=== PATIENT | male | born 1965 | race Caucasian/White ===

== ENCOUNTER 2023-06-23 08:33 | Emergency (ER) | payer SELFPAY ==
[~2023-06-23] VITALS: Ht 165.1 cm; Wt 50.0 kg
[2023-06-23 09:40] VITALS: BP 118/76; PULSE 87; RESP 18; O2SAT 98
[2023-06-23] MEDS ORDERED: HYDROcodone-ACET 5/325MG TAB PO ONE (09:45)
[2023-06-23] MEDS ORDERED: PRED20TA2 PO (10:19)
[2023-06-23] MEDS ORDERED: ACET-1080 PO (10:19)
== END 2023-06-23 10:19 | disposition home or self-care (01) ==
LOC: ER 08:33
DX: M54.16 Radiculopathy, lumbar region (principal); M79.651 Pain in right thigh; Z59.00 Homelessness unspecified
CPT/HCPCS: 93971

== ENCOUNTER 2025-09-04 09:19 | Inpatient (IN) | payer SELFPAY ==
[~2025-09-04] VITALS: Ht 165.1 cm; Wt 132.0 kg
[~2025-09-04 09:19] MED LIST: ACET-1080 PO; PRED20TA2 PO
--- NOTE | 2025-09-04 09:34 | ED.PDOC ---
Psychiatric HPI Comments 60 yo male presents to the ED via EMS for an evaluation of mental health. EMS reports patient is homeless, reported that he was called in has been in the brain in the past couple of days. Upon ED arrival patient's temperature presents at 95 F via temporal site. Patient is not cooperative, is not answering any other questions and his covered up with a\ blanket stating that he is cold. Unable to provide any background history or any on known medication and take. Chief Complaint: Mental Health Time Seen by MD: 09:18 Primary Care Provider: SAIMA Reviewed Notes: Nurses Notes, Toll Ticket Clerk Notes, Medications, Allergies Information Source: Patient, Emergency Med Personnel Severity: Able to Care for Self Timing: Days Duration: Since onset Presents with: Other Circumstance: Other History of: Other Past Medical History PAST MEDICAL HISTORY: Unknown, Unobtainable Surgical History: Unknown, Unobtainable Family History Family History: Unknown, Unobtainable Social History Smoker: Unknown, Unobtainable Alcohol: Unknown, Unobtainable Drugs: Unknown, Unobtainable Lives In: Homeless Constitutional: denies: chills, diaphoresis, fatigue, fever, malaise, sweats, weakness, others EENTM: denies: blurred vision, double vision, ear bleeding, ear discharge, ear drainage, ear pain, ear ringing, eye pain, eye redness, hearing loss, mouth pain, mouth swelling, nasal discharge, nose bleeding, nose congestion, nose pain, photophobia, tearing, throat pain, throat swelling, voice changes, others Respiratory: denies: cough, hemoptysis, orthopnea, SOB at rest, shortness of breath, SOB with excertion, stridor, wheezing, others Cardiovascular: denies: chest pain, dizzy spells, diaphoresis, Dyspnea on exertion, edema, irregular heart beat, left arm pain, lightheadedness, palpitations, PND, syncope, others Gastrointestinal: denies: abdomen distended, abdominal pain, blood streaked bowels, constipated, diarrhea, dysphagia, difficulty swallowing, hematemesis, melena, nausea, poor appetite, poor fluid intake, rectal bleeding, rectal pain, vomiting, others Genitourinary: denies: burning, dysuria, flank pain, frequency, hematuria, incontinence, penile discharge, penile sore, pain, testicle pain, testicle swelling, urgency, others Neurological: denies: dizziness, fainting, headache, left sided numbness, left sided weakness, numbness, paresthesia, pre-existing deficit, right sided numbness, right sided weakness, seizure, speech problems, tingling, tremors, weakness, others Musculoskeletal: denies: back pain, gout, joint pain, joint swelling, muscle pain, muscle stiffness, neck pain, others Integumetry: denies: bruises, change in color, change in hair/nails, dryness, laceration, lesions, lumps, rash, wounds, others Allergic/Immunocompromised: denies: Difficulty Healing, Frequent Infections, Hives, Itching, others Hematologic/Lymphatic: denies: anemia, blood clots, easy bleeding, easy bruising, swollen glands, others Endocrine: denies: excessive hunger, excessive sweating, excessive thirst, excessive urination, flushing, intolerance to cold, intolerance to heat, unexplained weight gain, unexplained weight loss, others Psychiatric: denies: anxiety, bipolar disorder, depression, hopeless, panic disorder, schizophrenia, sleepless, suicidal, others All Other Systems: Reviewed and Negative Physical Exam General Appearance: Moderate Distress HEENT: Normal ENT Inspection, Pharynx Normal, TMs Normal Neck: Full Range of Motion, Non-Tender, Normal, Normal Inspection Respiratory: Chest Non-Tender, Lungs Clear, No Accessory Muscle Use, No Respiratory Distress, Normal Breath Sounds Cardiovascular: No Edema, No JVD, No Murmur, No Gallop, Normal Peripheral Pulses, Regular Rate/Rhythm Breast Exam: Deferred Gastrointestinal: No Organomegaly, Non Tender, No Pulsatile Mass, Normal Bowel Sounds, Soft Genitalia: Deferred Pelvic: Deferred Rectal: Deferred Extremities: No calf tenderness, Normal capillary refill, Normal inspection, No rmal range of motion, Non-tender, No pedal edema Musculoskeletal : Apperance: Normal Neurologic: Alert, traffic survey technician II-XII nml as Tested, No Motor Deficits, Normal Affect, Normal Mood, No Sensory Deficits Cerebellar Function: NOT DONE Reflexes: NOT DONE Skin: Dry, Normal Color, Warm Peripheral Pulses: 3+ Radial (R), 3+ Radial (L) Lymphatic: No Adenopathy Was a procedure done? Was a procedure done?: No Psych Differential Dx Psych. Differential Dx: N/A X-Ray, Labs, Meds, VS Vital Signs Date Time Temp Pulse Resp B/P (MAP) Pulse Ox O2 Delivery O2 Flow Rate FiO2 09/04/25 09:25 95.0 62 18 146/82 98 95.0 Lab Test 09/04/25 10:52 09/04/25 10:37 Range/Units White Blood Count 10.9 H 4.4-10.8 10^3/uL Red Blood Count 6.76 H 4.5-5.90 10^6/uL Hemoglobin 19.4 H 13.5-17.5 g/dL Hematocrit 57.2 H 41.0-53.0 % Mean Corpuscular Volume 84.7 80.0-100.0 fL Mean Corpuscular Hemoglobin 28.7 28.0-32.0 pg Mean Corpuscular Hemoglobin Concent 33.9 32.0-36.0 g/dL Red Cell Distribution Width 14.0 11.8-14.3 % Platelet Count 234 140-450 10^3/uL Mean Platelet Volume 7.7 6.9-10.8 fL Neutrophils (%) (Auto) 86.6 H 37.0-80.0 % Lymphocytes (%) (Auto) 6.1 L 10.0-50.0 % Monocytes (%) (Auto) 7.1 0.0-12.0 % Eosinophils (%) (Auto) 0.0 0.0-7.0 % Basophils (%) (Auto) 0.2 0.0-2.0 % Neutrophils # (Auto) 9.5 H 1.6-8.6 10 ^3/uL Lymphocytes # (Auto) 0.7 0.4-5.4 10 ^3/uL Monocytes # (Auto) 0.8 0-1.3 10 ^3/uL Eosinophils # (Auto) 0 0-0.8 10 ^3/uL Basophils # (Auto) 0 0-0.2 10 ^3/uL Nucleated Red Blood Cells 0.4 % Sodium Level 140 136-145 mmol/L Potassium Level 3.4 L 3.5-5.1 mmol/L Chloride Level 99 98-107 mmol/L Carbon Dioxide Level 29 20-31 mmol/L Anion Gap 12 5-15 Blood Urea Nitrogen 11 9-23 mg/dL Creatinine 0.89 0.700-1.30 mg/dL Glomerular Filtration Rate Calc 97 >90 mL/min BUN/Creatinine Ratio 12.4 10.0-20.0 Serum Glucose 118 H 74-106 mg/dL Calcium Level 10.0 8.7-10.4 mg/dL Creatine Kinase 209 H 46-171 U/L Urine Color Dark yellow Yellow Urine Clarity Ex.turbid Clear Urine pH 6.0 5.0-9.0 Urine Specific [place] 1.024 1.001-1.035 Urine Protein 1+ H Negative Urine Ketones 1+ H Negative Urine Blood 2+ H Negative /uL Urine Nitrite Negative Negative Urine Bilirubin Negative Negative Urine Urobilinogen 2 H Negative mg/dL Urine Leukocyte Esterase 3+ Negative /uL Urine RBC 22 0 - 3 /hpf Urine Microscopic WBC 459 H 0-3 /HPF Urine Squamous Epithelial Cells None seen <5 /hpf Urine Bacteria Few H None Seen /hpf Urine Mucus Few None Seen Urine Glucose Normal Normal mg/dL Current Medications Medications (Trade) Dose Ordered Sig/Farhat Route Start Time Stop Time Status Last Admin Sodium Chloride 1,000 ml @ 1,000 mls/hr Q1H ONCE IV 09/04/25 10:15 09/04/25 11:14 DC 09/04/25 11:34 Patient alert. Answering questions. Moving all extremities. Heart rate within normal limits. Saturation pristine on room air. Establish intravenous access. Was given fluids. Continue monitoring. Urinalysis shows UTI. Creatinine kinase elevated. Was given bicarbonate. She will need bicarbonate drip. Continue fluids. Was given Rocephin. Explained to the patient. Time of 1ST Reevaluation: 09:33 Reevaluation 1ST: Improved Patient Education/Counseling: Other Family Education/Counseling: No Family Present Departure 1 Departure Time of Disposition: 11:08 Impression: Primary Impression: Hypothermia Qualified Codes: T68.XXXA - Hypothermia, initial encounter Additional Impressions: Sepsis due to urinary tract infection Dehydration Rhabdomyolysis Qualified Codes: M62.82 - Rhabdomyolysis Disposition: 01 HOME / SELF CARE / HOMELESS Condition: Good Discharged With: Self Critical Care Note Critical Care Time?: No Stability Stability form required: No I personally scribed for JENNIFER BRITT MD ([email or web address]) on 09/04/25 at 09:34. Electronically submitted by Gaye Turcios ([facility]). JENNIFER BRITT MD Sep 04, 2025 09:34
[2025-09-04 11:01] LABS: Urine Protein, UAD 1+ (Negative)
[2025-09-04 11:08] LABS: Hematocrit 57.2 % (41.0-53.0); Hemoglobin 19.4 g/dL (13.5-17.5); Mean Corpuscular Hemoglobin 28.7 pg (28.0-32.0); Mean Corpuscular Volume 84.7 fL (80.0-100.0); Nucleated Red Blood Cells % 0.4 %
[2025-09-04 11:20] VITALS: PULSE 54; RESP 11; O2SAT 97
[2025-09-04 11:22] LABS: Chloride 99 mmol/L (98-107); Sodium 140 mmol/L (136-145)
[2025-09-04 11:23] LABS: Anion Gap 12 (5-15); Calcium 10.0 mg/dL (8.7-10.4); Carbon Dioxide 29 mmol/L (20-31)
[2025-09-04 11:24] LABS: Potassium 3.4 mmol/L (3.5-5.1)
[2025-09-04 11:28] LABS: BUN/Creatinine Ratio 12.4 (10.0-20.0); Blood Urea Nitrogen 11 mg/dL (9-23)
[2025-09-04 11:32] LABS: Creatine Kinase IFCC 209 U/L (46-171); Glucose 118 mg/dL (74-106)
[2025-09-04] MEDS: SODIUM CHLORIDE 0.9% 1,000 ML IV ONE ×3 (11:34→13:30)
[2025-09-04] MEDS ORDERED: SODIUM CHLORIDE 0.9% 1,000 ML IV ONE (12:00)
[2025-09-04] MEDS: LORazepam 2MG/ML-1ML VIAL IV ONE (13:04)
[2025-09-04] MEDS: ONDANSETRON HCL 4 MG/2 ML VIAL IV ONE (13:05)
[2025-09-04] MEDS: SODIUM BICARB 8.4% 50Meq/50ml SYR Vial IV ONE (14:17)
[2025-09-04 14:59] LABS: Lactic Acid w/Reflex 3.1 mmol/L (0.4-2.0)
[2025-09-04] MEDS ORDERED: MORPHINE SULFATE INJ 2 MG/ml SYRG IV PRN (15:15)
[2025-09-04] MEDS ORDERED: NITROGLYCERIN 0.4 MG SL TAB SL PRN (15:15)
[2025-09-04] MEDS ORDERED: ONDANSETRON HCL 4 MG/2 ML VIAL IV PRN (15:15)
--- NOTE | 2025-09-04 15:48 | DVHHPRES ---
History of Present Illness Resident Creating Document: ERMA EL RESIDENT History of Present Illness Mr. Wray is a 60-year-old male homeless male who presents with an unclear chief complaint, as he appears confused and unable to provide a coherent history of what happened to him or why he is in the hospital. The patient demonstrates altered mental status and difficulty responding appropriately to questions, though he is able to follow simple commands. The patient denies current difficulty breathing, chest pain, or weakness when specifically asked. He reports feeling cold. He is able to move his extremities and squeeze hands when instructed. The patient appears disoriented and repeatedly states "I don't know" when asked about his medical conditions or what brought him to the hospital. Regarding substance use, the patient reports smoking cigarettes and occasional marijuana use. He denies current use of methamphetamine, cocaine, or opioids, stating his last fentanyl use was 5 years ago. When asked about substance use yesterday, he denies taking any drugs. Medical, surgical and family History - unable to obtain Social History - Substance Use: Tobacco smoker, occasional marijuana use, history of fentanyl use (last use 5 years ago), denies current methamphetamine or cocaine use - Living Situation: Homeless - Family: Denies having family Review of Systems General: Positive for feeling cold. Cardiovascular: Negative for chest pain. Respiratory: Negative for difficulty breathing. Neurological: Patient reports weakness. Review of Systems Allergies: Coded Allergies: NO KNOWN ALLERGIES (Unverified , 06/23/23) Medications Current Medications Medications Dose Ordered Sig/Farhat Route Start Time Stop Time Status Last Admin Dose Admin Sodium Chloride 10 ml Q8HR IV 09/04/25 22:00 Sodium Chloride 1,000 ml @ 80 mls/hr [id number] IV 09/04/25 15:15 Ondansetron HCl 4 mg Q4HP PRN IV 09/04/25 15:15 Enoxaparin Sodium 40 mg DAILY SC 09/05/25 10:00 Zinc Sulfate 220 mg DAILY PO 09/05/25 10:00 Ascorbic Acid 500 mg BID PO 09/04/25 22:00 Multivitamins 1 tab DAILY PO 09/05/25 10:00 Acetaminophen 650 mg Q6HP PRN PO 09/04/25 15:15 Nitroglycerin 0.4 mg Q5MINP PRN SL 09/04/25 15:15 Morphine Sulfate 2 mg Q30M PRN IV 09/04/25 15:15 Ceftriaxone Sodium 50 ml @ 100 mls/hr DAILY@09 IV 09/05/25 09:00 Exam Vital Signs Vital Signs Date Time Temp Pulse Resp B/P (MAP) Pulse Ox O2 Delivery O2 Flow Rate FiO2 09/04/25 13:30 54 13 137/74 (95) 97 09/04/25 11:20 Room Air* 0 21 09/04/25 11:20 95.1 95.1 Exam Pt is lying on bed General Appearance: Alert, Oriented X2, Cooperative, Patient responds to verbal stimuli HEENT: Atraumatic, Mucous membranes moist/pink Respiratory: Clear to auscultation, Normal air movement, No added sounds Cardiovascular: Regular rate, Normal S1, Normal S2, No murmurs Abdominal: Active bowel sounds, Soft, no distention, no tenderness Extremities: No edema, Normal pulses, No tenderness/swelling Skin: No Significant rash, except past surgical scars Neuro: Normal speech, sensorimotor deficits none Psych/Mental Status: Mental status NL, Mood NL Nurse was there as processing clerk during examination Labs/Xrays Labs Test 09/04/25 14:45 09/04/25 14:15 09/04/25 10:52 09/04/25 10:37 Range/Units Lactic Acid Level 3.1 *H 0.4-2.0 mmol/L White Blood Count 10.9 H 4.4-10.8 10^3/uL Red Blood Count 6.76 H 4.5-5.90 10^6/uL Hemoglobin 19.4 H 13.5-17.5 g/dL Hematocrit 57.2 H 41.0-53.0 % Mean Corpuscular Volume 84.7 80.0-100.0 fL Mean Corpuscular Hemoglobin 28.7 28.0-32.0 pg Mean Corpuscular Hemoglobin Concent 33.9 32.0-36.0 g/dL Red Cell Distribution Width 14.0 11.8-14.3 % Platelet Count 234 140-450 10^3/uL Mean Platelet Volume 7.7 6.9-10.8 fL Neutrophils (%) (Auto) 86.6 H 37.0-80.0 % Lymphocytes (%) (Auto) 6.1 L 10.0-50.0 % Monocytes (%) (Auto) 7.1 0.0-12.0 % Eosinophils (%) (Auto) 0.0 0.0-7.0 % Basophils (%) (Auto) 0.2 0.0-2.0 % Neutrophils # (Auto) 9.5 H 1.6-8.6 10 ^3/uL Lymphocytes # (Auto) 0.7 0.4-5.4 10 ^3/uL Monocytes # (Auto) 0.8 0-1.3 10 ^3/uL Eosinophils # (Auto) 0 0-0.8 10 ^3/uL Basophils # (Auto) 0 0-0.2 10 ^3/uL Nucleated Red Blood Cells 0.4 % Sodium Level 140 136-145 mmol/L Potassium Level 3.4 L 3.5-5.1 mmol/L Chloride Level 99 98-107 mmol/L Carbon Dioxide Level 29 20-31 mmol/L Anion Gap 12 5-15 Blood Urea Nitrogen 11 9-23 mg/dL Creatinine 0.89 0.700-1.30 mg/dL Glomerular Filtration Rate Calc 97 >90 mL/min BUN/Creatinine Ratio 12.4 10.0-20.0 Serum Glucose 118 H 74-106 mg/dL Calcium Level 10.0 8.7-10.4 mg/dL Creatine Kinase 209 H 46-171 U/L Urine Color Dark yellow Yellow Urine Clarity Ex.turbid Clear Urine pH 6.0 5.0-9.0 Urine Specific [place] 1.024 1.001-1.035 Urine Protein 1+ H Negative Urine Ketones 1+ H Negative Urine Blood 2+ H Negative /uL Urine Nitrite Negative Negative Urine Bilirubin Negative Negative Urine Urobilinogen 2 H Negative mg/dL Urine Leukocyte Esterase 3+ Negative /uL Urine RBC 22 0 - 3 /hpf Urine Microscopic WBC 459 H 0-3 /HPF Urine Squamous Epithelial Cells None seen <5 /hpf Urine Bacteria Few H None Seen /hpf Urine Mucus Few None Seen Urine Glucose Normal Normal mg/dL SEPSIS Sepsis Screen Date sepsis recognized/suspect: Sep 04, 2025 Time Sepsis recognized/suspect: 1120 Recent Procedure: No On Antibiotic Therapy: Yes Respiratory Rate >20: Yes Heart Rate >90: No Temp<36 C (96.8 F) or >38.3 C: Yes SBP <90 or MAP <65 mmHG: No New Acute Mental Status Change: No Is the patient on CPAP, BIPAP,: No Physician Orders Insert Cortez Catheter QSHIFT (12/26/25 10:09) Sodium Chloride 0.9% (09/04/25 12:00) Urine Bacterial Culture (09/04/25 11:57) Communication Order (09/04/25 13:17) Blood Culture (09/04/25 13:33) Admit (09/04/25 15:04) Allergies (09/04/25 15:04) Code Status (09/04/25 15:04) Sodium Chloride Lock (Saline Lock Ns) (09/04/25 22:00) Sodium Chloride 0.9% (09/04/25 15:15) Oxygen Per Hour (09/04/25 15:04) Ondansetron Hcl (Zofran) (09/04/25 15:15) Enoxaparin Sodium (Lovenox) (09/05/25 10:00) Zinc Sulfate (09/05/25 10:00) Ascorbic Acid Tablet (Vitamin C Tablet) (09/04/25 22:00) Multiple Vitamin Tablet (Mvi Tab) (09/05/25 10:00) Complete Blood Count (09/05/25 04:00) Comprehensive Metabolic Panel (09/05/25 04:00) Npo (Nothing By Mouth) Diet (09/04/25 Dinner) * Swallow Request (09/04/25 15:04) Echo 2d Mode Cardiac Dop (09/04/25 15:04) Condition: Fair (09/04/25 15:04) Acetaminophen Tablet (Tylenol Tablet) (09/04/25 15:15) Nitroglycerin Sublingual (Ntrostat Subli (09/04/25 15:15) Morphine Sulfate Injection (09/04/25 15:15) Oxygen By Nasal Cannula (09/04/25 15:04) Stat Ekg For Chest Pain (09/04/25 15:04) Notify Md Of Changes From Base (09/04/25 15:04) Senior Games Technician For 24 Hours (09/04/25 15:04) Emergency Dysrhythmia Protocol (09/04/25 15:04) Rhythm Strips Once Every Shift (09/04/25 15:04) Ceftriaxone 1gm/50ml (Rocephin) (09/05/25 09:00) B-Type Natriuretic Peptide (09/04/25 15:04) Ammonia (09/04/25 15:04) Blood Alcohol (09/04/25 15:04) C-Reactive Protein (09/04/25 15:04) Covid19 Antigen [place] (09/04/25 15:04) Drug Screen (09/04/25 15:04) Hepatic Panel (09/04/25 15:04) Magnesium (09/04/25 15:04) PTPTT (09/04/25 15:04) Rapid Influenza A&B (09/04/25 15:04) Thyroid Stimulating Hormone (09/04/25 15:04) Head Without Contrast (09/04/25 15:04) Chest Portable (09/04/25 15:04) * Mechanic Industrial Truck Consult (09/04/25 ) Folate (Folic Acid) (09/04/25 15:39) Vitamin B1 (Thiamine) (09/04/25 15:39) Vitamin B12 (09/04/25 15:39) Vital Signs Date Time Temp Pulse Resp B/P (MAP) Pulse Ox O2 Delivery O2 Flow Rate FiO2 09/04/25 13:30 54 13 137/74 (95) 97 09/04/25 11:20 54 11 97 Room Air* 0 21 09/04/25 11:20 95.1 54 11 138/73 (94) 97 95.1 09/04/25 09:25 95.0 62 18 146/82 98 95.0 Laboratory Tests Test 09/04/25 10:52 09/04/25 14:15 White Blood Count 10.9 10^3/uL (4.4-10.8) H Lactic Acid Level 3.1 mmol/L (0.4-2.0) *H Medications Medications Dose Ordered Sig/Farhat Route Start Time Stop Time Status Last Admin Dose Admin Ceftriaxone Sodium 50 ml @ 100 mls/hr ONCE ONCE IV 09/04/25 12:00 09/04/25 12:29 DC 09/04/25 13:12 100 MLS/HR Sodium Bicarbonate 100 ml ONCE ONCE IV 09/04/25 12:00 09/04/25 12:01 DC 09/04/25 14:17 100 ML Sodium Chloride 1,000 ml @ 100 mls/hr Q10H ONCE IV 09/04/25 13:30 09/04/25 15:27 DC 09/04/25 13:30 100 MLS/HR Sodium Chloride 1,000 ml @ 1,000 mls/hr Q1H ONCE IV 09/04/25 10:15 09/04/25 11:14 DC 09/04/25 11:34 1,000 MLS/HR Sodium Chloride 1,000 ml @ 1,000 mls/hr Q1H ONCE IV 09/04/25 12:00 09/04/25 12:59 DC 09/04/25 13:15 1,000 MLS/HR Assessment/Plan Assessment/Plan Assessment & Plan Nils is a homeless patient with history of hypertension and substance use presenting with altered mental status and fever. Acute toxic/metabolic encephalopathy likely due to below Possible sepsis Acute complicated UTI Severe hypothermia, Rule out covid/ flu Plan: - GGS >11 - Admit to med/surge - monitor lab, electrolytes - head CT - IVF per sepsis protocol - TSH, folate, B1, B12 - Rocephin - blood and urine cultures - UDS - CXR - Nutritional support - swallow eval Homelessness - consulted certified social workers in health care GI PPX: Protonix VTE ppx: Lovenox Diet: cardiac Goals of care addressed with the patient for more than 27 minutes: Full code status Case discussed with Dr. Cid, patient and nurse Plan discussed with: Patient My Orders Orders - ERMA EL RESIDENT Procedure Category Date Status Time Admit ADMIT 09/04/25 Transmitted 15:04 Allergies ISAAK 09/04/25 In Process 15:04 Code Status CODE 09/04/25 Transmitted 15:04 Sodium Chloride Lock PHA 09/04/25 In Process (Saline Lock Ns) 22:00 Sodium Chloride 0.9% PHA 09/04/25 In Process 15:15 Oxygen Per Hour RT 09/04/25 Transmitted 15:04 Ondansetron Hcl PHA 09/04/25 In Process (Zofran) 15:15 Enoxaparin Sodium PHA 09/05/25 In Process (Lovenox) 10:00 Zinc Sulfate PHA 09/05/25 In Process 10:00 Ascorbic Acid Tablet PHA 09/04/25 In Process (Vitamin C Tablet) 22:00 Multiple Vitamin PHA 09/05/25 In Process Tablet (Mvi Tab) 10:00 Complete Blood Count LAB 09/05/25 Verified 04:00 Comprehensive LAB 09/05/25 Verified Metabolic Panel 04:00 Npo (Nothing By DIET 09/04/25 Transmitted Mouth) Diet Dinner * Swallow Request ST 09/04/25 Transmitted 15:04 Echo 2d Mode Cardiac US 09/04/25 Logged DOP 15:04 Condition: Fair ISAAK 09/04/25 In Process 15:04 Acetaminophen Tablet PHA 09/04/25 In Process (Tylenol Tablet) 15:15 Nitroglycerin PHA 09/04/25 In Process Sublingual (Ntrostat 15:15 Morphine Sulfate PHA 09/04/25 In Process Injection 15:15 Oxygen By Nasal RT 09/04/25 Transmitted Cannula 15:04 Stat Ekg For Chest [facility] 09/04/25 In Process Pain 15:04 Notify Md Of Changes [facility] 09/04/25 In Process From Base 15:04 Senior Games Technician For [facility] 09/04/25 In Process 24 Hours 15:04 Emergency Dysrhythmia [facility] 09/04/25 In Process Protocol 15:04 Rhythm Strips Once [facility] 09/04/25 In Process Every Shift 15:04 Ceftriaxone 1gm/50ml PHA 09/05/25 In Process (Rocephin) 09:00 B-Type Natriuretic LAB 09/04/25 In Process Peptide 15:04 Ammonia LAB 09/04/25 Logged 15:04 Blood Alcohol LAB 09/04/25 Logged 15:04 C-Reactive Protein LAB 09/04/25 Logged 15:04 Covid19 Antigen [place] LAB 09/04/25 Logged 15:04 Drug Screen LAB 09/04/25 In Process 15:04 Hepatic Panel LAB 09/04/25 Logged 15:04 Magnesium LAB 09/04/25 Logged 15:04 PTPTT LAB 09/04/25 Logged 15:04 Rapid Influenza A&B LAB 09/04/25 Logged 15:04 Thyroid Stimulating LAB 09/04/25 Logged Hormone 15:[address] 09/04/25 Taken 15:04 Chest Portable XY 09/04/25 Taken 15:04 * Mechanic Industrial Truck CONS 09/04/25 Transmitted Consult Folate (Folic Acid) LAB 09/04/25 Logged 15:39 Vitamin B1 (Thiamine) LAB 09/04/25 Logged 15:39 Vitamin B12 LAB 09/04/25 Logged 15:39 Visit Coding STANDARD RES Billing Provider: NIXON CID MD Date of Service if different f: Sep 04, 2025 Common Visit Codes: 54190-[id number] INP/OBS CARE (HIGH) Secondary Visit Codes: [id number]-[id number] CARE PLAN 30 MINUTES ERMA EL RESIDENT Sep 04, 2025 15:48
[2025-09-04 15:58] LABS: Amphetamine Screen, Urine Neg (NEGATIVE)
--- NOTE | 2025-09-04 15:58 | DVH ---
CT brain without contrast CLINICAL INDICATION: Altered, rule out CVA FINDINGS: The study was performed in a multidetector scanner. This study performed taking axial images from the skull base up to the vertex. Both brain and bone windows are photographed. Dose lowering techniques have been used including automated exposure control and adjustment of mA and/or KV according to patient size. Cortical sulcal markings are prominent. No areas of hemorrhage or edema in the brain parenchyma. No hydrocephalus. No midline shift or extra-axial fluid collections. There is mucosal thickening in the ethmoid sinus air cells. No calvarial lesions. IMPRESSION: 1. Atrophy. No acute intracranial pathology Computed Tomographic Radiation Dosimetry Report: Total CTDI vol = 54 mGy Total DLP = 935 mGy-cm All CT scans at this medical facility are performed using dose modulation techniques as appropriate to a performed exam including the following: Automated exposure control was utilized; adjustment of the MA and/or KvP according to patient size; and use of iterative reconstruction technique.
[2025-09-04 16:00] LABS: Barbiturate Scree,Urine Neg (NEGATIVE); Benzodiazephine Screen, Urine Neg (NEGATIVE); Cannabinoid Screen, Urine Neg (NEGATIVE); Cocaine Screen, Urine Neg (NEGATIVE); Opiate Scree,Urine Neg (NEGATIVE); Phencyclidine Screen, Urine Neg (NEGATIVE)
--- NOTE | 2025-09-04 16:00 | DVH ---
Portable chest CLINICAL INDICATION: sob FINDINGS: Heart size is normal. No infiltrates or effusions. No bony thoracic abnormalities. IMPRESSION: 1. No acute cardiopulmonary pathology
[2025-09-04 16:55] LABS: Alanine Aminotransferase 27 U/L (7-40); Albumin 3.9 g/dL (3.2-4.8); Alkaline Phosphatase 97 U/L (46-116); Bilirubin, Direct 0.2 mg/dL (<0.3); Bilirubin, Total 0.6 mg/dL (0.2-1.0); Magnesium 2.0 mg/dL (1.6-2.6); Total Protein 6.4 g/dL (5.7-8.2)
[2025-09-04 17:03] LABS: COVID19 ANTIGEN SOFIA FIA NEGATIVE (NEGATIVE)
[2025-09-04 17:27] LABS: INR 1.19 (0.9-1.15); Partial Thromboplastin Time 30.8 SEC (24.5-34.5); Prothrombin Time 12.4 sec (9.3-11.8)
[2025-09-04] MEDS: SODIUM CHLORIDE 0.9% 1,000 ML IV SCH (17:39)
[2025-09-04 19:20] VITALS: PULSE 56; RESP 28; O2SAT 96
[2025-09-04] MEDS: NALOXONE HCL 0.4 MG/ML VIAL IV ONE (19:55)
--- NOTE | 2025-09-04 21:01 | DVHSR ---
APPROVED REPORT EXAM: Two-dimensional and M-mode echocardiogram with Doppler and color Doppler. Blood Pressure: 137/74 mmHg INDICATION To rule out structural heart disease RISK FACTORS Height: 65, DIMENSIONS LVDd 4.3 (3.8-5.7cm) LA (2D) (1.9-4.0cm) Aortic Root 2.8 (2.0-3.7cm) LVDs 2.9 (2.5-4.0cm) LA (MM) (1.9-4.0cm) Aortic Cusp Exc 1.5 (1.5-2.0cm) EF (%) 62.0 (55-70%) Rt. Atrium (1.9-4.0cm) Asc. Aorta cm Mitral Valve Mitral Mitral Stenosis E wave 0.79m/s MV Mean GR. mmHg A wave 1.15m/s MV Peak GR. mmHg E/A ratio 0.7 2D MVA cm2 DECEL Time 211ms PRESS 1/2 Time ms Aortic Valve Aortic Valve Aortic Stenosis V1 0.81m/s AO Mean GR. 2mmHg V2 1.03m/s AO Peak GR. 4mmHg LVOT Diameter 1.7 (1.8-2.4cm) Doppler MARKO 1.78cm2 Other Information Technically limited study due to patient laying flat on his back. Patient was sleeping the entire study. Conclusion LV EF IS 70% NORMAL VALVES NORMAL RV FUNCTION NO EFFUSION
[2025-09-04] MEDS: SODIUM CHLOR 0.9% PF (SALINE LOCK) 10ML VIAL/SYR IV SCH (22:00)
[2025-09-04] MEDS: ASCORBIC ACID 500 MG TAB PO SCH (22:00)
[2025-09-05 03:09] LABS: Hematocrit 47.0 % (41.0-53.0); Hemoglobin 15.9 g/dL (13.5-17.5); Mean Corpuscular Hemoglobin 28.4 pg (28.0-32.0); Mean Corpuscular Volume 84.0 fL (80.0-100.0); Nucleated Red Blood Cells % 0.2 %
[2025-09-05 03:15] LABS: Alanine Aminotransferase 21 U/L (7-40); Alkaline Phosphatase 85 U/L (46-116); Anion Gap 9 (5-15); BUN/Creatinine Ratio 19.2 (10.0-20.0); Blood Urea Nitrogen 10 mg/dL (9-23); Carbon Dioxide 28 mmol/L (20-31); Chloride 106 mmol/L (98-107); Glucose 91 mg/dL (74-106); Sodium 143 mmol/L (136-145)
[2025-09-05 03:16] LABS: Albumin 3.4 g/dL (3.2-4.8); Bilirubin, Total 0.8 mg/dL (0.2-1.0); Calcium 8.2 mg/dL (8.7-10.4); Potassium 3.1 mmol/L (3.5-5.1); Total Protein 5.7 g/dL (5.7-8.2)
[2025-09-05 08:00] VITALS: PULSE 64; RESP 28; O2SAT 100
[2025-09-05 10:11] VITALS: PULSE 88; RESP 19; O2SAT 95
[2025-09-05] MEDS: MULTIPLE VITAMIN TAB PO SCH (10:40)
[2025-09-05] MEDS: ZINC SULFATE 220mg CAP or TAB PO SCH (10:41)
[2025-09-05] MEDS: ENOXAPARIN SOD 40 MG/0.4 ML SYRINGE SC SCH (10:41)
[2025-09-05 13:15] VITALS: BP 120/74; PULSE 64; RESP 16; TEMP 98.2; O2SAT 98
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
[2025-09-05 14:39] VITALS: BP 126/80; PULSE 61; RESP 18; TEMP 97.9; O2SAT 91
[2025-09-05] MEDS: D5W/SOD CHL 0.45% 1,000 ML IV SCH (16:50)
[2025-09-05 17:00] VITALS: BP 128/80; PULSE 74; RESP 21; TEMP 97.4; O2SAT 91
[2025-09-05 21:00] VITALS: BP 116/76; PULSE 89; RESP 18; TEMP 99; O2SAT 93
[2025-09-05] MEDS: ACETAMINOPHEN 325 MG TAB PO PRN (22:55)
[2025-09-06] VITALS (7 sets, daily range): BP systolic 121–146; BP diastolic 71–83; PULSE 59–76; RESP 16–19; TEMP 97.2–100.4; O2SAT 92–99
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
[2025-09-06] MEDS ORDERED: AUG875T PO (15:02)
[2025-09-06] MEDS: POTASSIUM EFFERVESENT TAB 25 MEQ PO ONE (19:04)
[2025-09-07 01:00] VITALS: BP 105/80; PULSE 101; RESP 18; TEMP 97.9; O2SAT 97
[2025-09-07 05:00] VITALS: BP 111/72; PULSE 77; RESP 18; TEMP 98.2; O2SAT 98
[2025-09-07 08:00] VITALS: PULSE 63; RESP 12; O2SAT 98
[2025-09-07 09:18] VITALS: BP 113/73; PULSE 63; RESP 12; TEMP 98.3; O2SAT 98
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
[2025-09-08 09:07] LABS: Vitamin B1, Whole Blood 162.5 nmol/L (66.5-200.0)
== END 2025-09-07 14:55 | disposition home or self-care (01) | DRG 689 ==
LOC: EDBD 09:19 → ER 09:19 → OVERFLOW 15:04 → WEST WING 09-05 15:03
PROVIDERS: ADMIT Student in an Organized Health Care Education/Training Program; ATTEND Student in an Organized Health Care Education/Training Program
DX: N39.0 Urinary tract infection, site not specified (principal); G92.8 Other toxic encephalopathy; E46 Unspecified protein-calorie malnutrition; E87.20 Acidosis, unspecified; M62.82 Rhabdomyolysis; E86.0 Dehydration; Z68.42 Body mass index [BMI] 45.0-49.9, adult; E03.9 Hypothyroidism, unspecified; I10 Essential (primary) hypertension; Z59.00 Homelessness unspecified; F12.90 Cannabis use, unspecified, uncomplicated; T68.XXXA Hypothermia, initial encounter; R31.9 Hematuria, unspecified; F17.210 Nicotine dependence, cigarettes, uncomplicated; Z20.822 Contact with and (suspected) exposure to COVID-19
CPT/HCPCS: 36415; 70450; 71045; 80048; 80053; 80076; 80307; 80320; 81001; 82140; 82550; 82607; 82746; 83605; 83735; 83880; 84425; 84439; 84443; 85025; 85610; 85730; 86141; 87040; 87086; 87426; 87804; 93306; G0378

== ENCOUNTER 2025-09-08 04:24 | Emergency (ER) | payer MEDICAID ==
[~2025-09-08] VITALS: Ht 167.6 cm; Wt 50.1 kg
[~2025-09-08 04:24] MED LIST changes: +AUG875T PO
[2025-09-08 06:59] VITALS: BP 118/54; PULSE 77; TEMP 97.6
[2025-09-08 07:13] VITALS: RESP 18; O2SAT 98
--- NOTE | 2025-09-08 07:58 | ED.PDOC ---
History of Present Illness(SKN HPI Comments 60-year-old male who presents to the ED for chief complaint of cold exposure. Patient was discharge last night p.m. after being admitted for altered mental status with metabolic encephalopathy and fever. Patient states he is homeless and states after being discharged he feels very cold and states he is having pain by his left long and came back for evaluation. Patient in the ED states he is feeling "cold' and has noted temperature of 97.6F in the ED with the otherwise stable vitals. Chief Complaint: Cold Exposure Time Seen by MD: 06:56 Primary Care Provider: SAIMA History of Present Illness: Nurses Notes, Medications, Allergies Allergies: Coded Allergies: NO KNOWN ALLERGIES (Unverified , 06/23/23) Home Meds Active Scripts Amoxicillin & Pot Clavulanate (AUGMENTIN TABLET) 875 Mg Tb, 875 MG PO BID for 5 Days, #10 TAB 0 Refills Prov:MELITON DALTON MD 09/06/25 Prednisone (Prednisone) 20 Mg Tab, 40 MG PO BID, #20 MG Prov:PAT ALAN 06/23/23 Acetaminophen (Tylenol 8 Hour Arthritis) 650 Mg Tab, 650 MG PO TID, #30 TAB Prov:PAT ALAN 06/23/23 Information Source: Patient Mode of Arrival: Ambulatory Past Medical History PAST MEDICAL HISTORY: Unknown, Unobtainable Surgical History: Unknown, Unobtainable Family History Family History: Unknown, Unobtainable Social History Smoker: Unknown, Unobtainable Alcohol: Unknown, Unobtainable Drugs: Unknown, Unobtainable Lives In: Homeless Constitutional: denies: chills, diaphoresis, fatigue, fever, malaise, sweats, weakness, others EENTM: denies: blurred vision, double vision, ear bleeding, ear discharge, ear drainage, ear pain, ear ringing, eye pain, eye redness, hearing loss, mouth pain, mouth swelling, nasal discharge, nose bleeding, nose congestion, nose pain, photophobia, tearing, throat pain, throat swelling, voice changes, others Respiratory: reports: shortness of breath; denies: cough, hemoptysis, orthopnea, SOB at rest, SOB with excertion, stridor, wheezing, others Cardiovascular: denies: chest pain, dizzy spells, diaphoresis, Dyspnea on exertion, edema, irregular heart beat, left arm pain, lightheadedness, palpitations, PND, syncope, others Gastrointestinal: denies: abdomen distended, abdominal pain, blood streaked bowels, constipated, diarrhea, dysphagia, difficulty swallowing, hematemesis, melena, nausea, poor appetite, poor fluid intake, rectal bleeding, rectal pain, vomiting, others Genitourinary: denies: burning, dysuria, flank pain, frequency, hematuria, incontinence, penile discharge, penile sore, pain, testicle pain, testicle swelling, urgency, others Neurological: denies: dizziness, fainting, headache, left sided numbness, left sided weakness, numbness, paresthesia, pre-existing deficit, right sided numbness, right sided weakness, seizure, speech problems, tingling, tremors, weakness, others Musculoskeletal: denies: back pain, gout, joint pain, joint swelling, muscle pain, muscle stiffness, neck pain, others Integumetry: denies: bruises, change in color, change in hair/nails, dryness, laceration, lesions, lumps, rash, wounds, others Allergic/Immunocompromised: denies: Difficulty Healing, Frequent Infections, Hives, Itching, others Hematologic/Lymphatic: denies: anemia, blood clots, easy bleeding, easy bruising, swollen glands, others Endocrine: denies: excessive hunger, excessive sweating, excessive thirst, excessive urination, flushing, intolerance to cold, intolerance to heat, unexplained weight gain, unexplained weight loss, others Psychiatric: denies: anxiety, bipolar disorder, depression, hopeless, panic disorder, schizophrenia, sleepless, suicidal, others All Other Systems: Reviewed and Negative Physical Exam General Appearance: No Apparent Distress, Normal HEENT: Normal ENT Inspection, Pharynx Normal, TMs Normal Neck: Full Range of Motion, Non-Tender, Normal, Normal Inspection Respiratory: Chest Non-Tender, Lungs Clear, No Accessory Muscle Use, No Respiratory Distress, Normal Breath Sounds Cardiovascular: No Edema, No JVD, No Murmur, No Gallop, Normal Peripheral Pulses, Regular Rate/Rhythm Breast Exam: Deferred Gastrointestinal: No Organomegaly, Non Tender, No Pulsatile Mass, Normal Bowel Sounds, Soft Genitalia: Deferred Pelvic: Deferred Rectal: Deferred Extremities: No calf tenderness, Normal capillary refill, Normal inspection, Normal range of motion, Non-tender, No pedal edema Musculoskeletal : Apperance: Normal Neurologic: Alert, application support lead II-XII nml as Tested, No Motor Deficits, Normal Affect, Normal Mood, No Sensory Deficits Cerebellar Function: Normal Reflexes: Normal Skin: Dry, Normal Color, Warm Lymphatic: No Adenopathy Was a procedure done? Was a procedure done?: No Differential Diagnosis (INTG) Differential Diagnosis: Other Abscess: Abscess, Bacteremia, Cellulitis, Other (Homelessness, hypothermia, mother encephalopathy) X-Ray, Labs, Meds, VS Vital Signs Date Time Temp Pulse Resp B/P (MAP) Pulse Ox O2 Delivery O2 Flow Rate FiO2 09/08/25 07:13 18 98 Room Air* 0 21 09/08/25 06:59 97.6 77 14 118/54 (75) 98 97.6 09/08/25 04:33 97.2 68 18 119/79 98 97.2 X-Ray, Labs, Meds, VS Comment This is a patient with fentanyl use and homelessness presenting after exposure to cold temperatures. - No signs of withdrawal symptoms at this time - Provide support and resources -preparation room worker consult Time of 1ST Reevaluation: 07:56 Reevaluation 1ST: Improved Patient Education/Counseling: Diagnosis, Treatment Family Education/Counseling: Diagnosis, Treatment SEPSIS Sepsis Screen Date sepsis recognized/suspect: Sep 08, 2025 Time Sepsis recognized/suspect: 07 Recent Procedure: No On Antibiotic Therapy: No Respiratory Rate >20: No Heart Rate >90: No Temp<36 C (96.8 F) or >38.3 C: No SBP <90 or MAP <65 mmHG: No New Acute Mental Status Change: No Is the patient on CPAP, BIPAP,: No Physician Orders * Archives Director Consult (09/08/25 ) Vital Signs Date Time Temp Pulse Resp B/P (MAP) Pulse Ox O2 Delivery O2 Flow Rate FiO2 09/08/25 07:13 18 98 Room Air* 0 21 09/08/25 06:59 97.6 77 14 118/54 (75) 98 97.6 09/08/25 04:33 97.2 68 18 119/79 98 97.2 Departure 1 Departure Time of Disposition: 07:57 Impression: Primary Impression: Hypothermia Qualified Codes: T68.XXXA - Hypothermia, initial encounter Additional Impression: Opioid abuse Disposition: 07 LEFT AWOL/ELOPED Condition: Stable Discharged With: Self Critical Care Note Critical Care Time?: No Stability Stability form required: No Heart Score Heart Score: Heart Score Response (Comments) Value History N/A 0 EKG N/A 0 Age N/A 0 Risk Factors N/A 0 Troponin N/A 0 Total 0 I personally scribed for EDDIE VALDIVIA NP ([email or web address]) on 09/08/25 at 08:34. Electronically submitted by Lela Gray ([email or web address]). EDDIE VALDIVIA NP Sep 08, 2025 07:58
--- NOTE | 2025-09-08 08:14 | ED.PDOC ---
History of Present Illness HPI Comments 60-year-old male who presents to the ED for chief complaint of cold exposure. Patient was discharge last night p.m. after being admitted for altered mental status with metabolic encephalopathy and fever. Patient states he is homeless and states he feels very cold and states he is having pain by his left long and came back for evaluation. Patient in the ED states he is feeling "cold' and has noted temperature of 97.6F in the ED with the otherwise stable vitals. Chief Complaint: Cold Exposure Time Seen by MD: 08:07 Primary Care Provider: SAIMA Reviewed Notes: Medications, Allergies Allergies: Coded Allergies: NO KNOWN ALLERGIES (Unverified , 06/23/23) Home Meds Active Scripts Amoxicillin & Pot Clavulanate (AUGMENTIN TABLET) 875 Mg Tb, 875 MG PO BID for 5 Days, #10 TAB 0 Refills Prov:MELITON DALTON MD 09/06/25 Prednisone (Prednisone) 20 Mg Tab, 40 MG PO BID, #20 MG Prov:PAT ALAN 06/23/23 Acetaminophen (Tylenol 8 Hour Arthritis) 650 Mg Tab, 650 MG PO TID, #30 TAB Prov:PAT ALAN 06/23/23 Information Source: Patient Mode of Arrival: Ambulatory Past Medical History PAST MEDICAL HISTORY: Unknown, Unobtainable Surgical History: Unknown, Unobtainable Family History Family History: Unknown, Unobtainable Social History Smoker: Unknown, Unobtainable Alcohol: Unknown, Unobtainable Drugs: Unknown, Unobtainable Lives In: Homeless Constitutional: reports: malaise, weakness; denies: chills, diaphoresis, fatigue, fever, sweats, others EENTM: denies: blurred vision, double vision, ear bleeding, ear discharge, ear drainage, ear pain, ear ringing, eye pain, eye redness, hearing loss, mouth pain, mouth swelling, nasal discharge, nose bleeding, nose congestion, nose pain, photophobia, tearing, throat pain, throat swelling, voice changes, others Respiratory: denies: cough, hemoptysis, orthopnea, SOB at rest, shortness of breath, SOB with excertion, stridor, wheezing, others Cardiovascular: denies: chest pain, dizzy spells, diaphoresis, Dyspnea on exertion, edema, irregular heart beat, left arm pain, lightheadedness, palpitations, PND, syncope, others Gastrointestinal: denies: abdomen distended, abdominal pain, blood streaked bowels, constipated, diarrhea, dysphagia, difficulty swallowing, hematemesis, melena, nausea, poor appetite, poor fluid intake, rectal bleeding, rectal pain, vomiting, others Genitourinary: denies: burning, dysuria, flank pain, frequency, hematuria, incontinence, penile discharge, penile sore, pain, testicle pain, testicle swelling, urgency, others Neurological: denies: dizziness, fainting, headache, left sided numbness, left sided weakness, numbness, paresthesia, pre-existing deficit, right sided numbness, right sided weakness, seizure, speech problems, tingling, tremors, weakness, others Musculoskeletal: denies: back pain, gout, joint pain, joint swelling, muscle pain, muscle stiffness, neck pain, others Integumetry: denies: bruises, change in color, change in hair/nails, dryness, laceration, lesions, lumps, rash, wounds, others Allergic/Immunocompromised: denies: Difficulty Healing, Frequent Infections, H les, Itching, others Hematologic/Lymphatic: denies: anemia, blood clots, easy bleeding, easy bruising, swollen glands, others Endocrine: denies: excessive hunger, excessive sweating, excessive thirst, excessive urination, flushing, intolerance to cold, intolerance to heat, unexplained weight gain, unexplained weight loss, others Psychiatric: denies: anxiety, bipolar disorder, depression, hopeless, panic disorder, schizophrenia, sleepless, suicidal, others All Other Systems: Reviewed and Negative Physical Exam General Appearance: No Apparent Distress, Normal HEENT: Normal ENT Inspection, Pharynx Normal, TMs Normal Neck: Full Range of Motion, Non-Tender, Normal, Normal Inspection Respiratory: Chest Non-Tender, Lungs Clear, No Accessory Muscle Use, No Respiratory Distress, Normal Breath Sounds Cardiovascular: No Edema, No JVD, No Murmur, No Gallop, Normal Peripheral Pulses, Regular Rate/Rhythm Breast Exam: Deferred Gastrointestinal: No Organomegaly, Non Tender, No Pulsatile Mass, Normal Bowel Sounds, Soft Genitalia: Deferred Pelvic: Deferred Rectal: Deferred Extremities: No calf tenderness, Normal capillary refill, Normal inspection, Normal range of motion, Non-tender, No pedal edema Musculoskeletal : Apperance: Normal Neurologic: Alert, softball player II-XII nml as Tested, No Motor Deficits, Normal Affect, Normal Mood, No Sensory Deficits Cerebellar Function: Normal Reflexes: Normal Skin: Dry, Normal Color, Warm Lymphatic: No Adenopathy Was a procedure done? Was a procedure done?: No Differential Dx Considerations may include: Homelessness, metabolic encephalopathy, altered mental status, X-Ray, Labs, Meds, VS Vital Signs Date Time Temp Pulse Resp B/P (MAP) Pulse Ox O2 Delivery O2 Flow Rate FiO2 09/08/25 07:13 18 98 Room Air* 0 21 09/08/25 06:59 97.6 77 14 118/54 (75) 98 97.6 09/08/25 04:33 97.2 68 18 119/79 98 97.2 X-Ray, Labs, Meds, VS Comment Patient arrives alert and oriented, ABC's intact, afebrile, vital signs stable, saturating well in room air Peripheral IV insertion+ labs were ordered. CBC was ordered to exclude anemia, blood loss, or infection. BMP was ordered to exclude electrolyte abnormalities, renal failure, dehydration, hyperglycemia CMP was ordered to exclude electrolyte abnormalities, renal failure, dehydration, hyperglycemia and/or liver enzyme abnormalities. PT and INR were ordered to rule out coagulopathy. Troponin and BNP were ordered to rule out myocardial infarction, or congestive heart failure. Urinalysis was ordered to rule out UTI or hematuria. Diagnostic imaging ordered by me and results interpreted by radiology : Labs in the ED showed (pertinent+ and then pertinent-) Patient was given:_. Tolerated medications with no adverse reaction. Additional MDM Review of External, Non-ED records: External records reviewed. Discussion with independent historian (EMS, family) history obtained from the patient/parents (if applicable) at bedside Chronic conditions affecting care: None Social determinants of health affecting care: None Consideration of admission (observation or admission): I considered escalation of care to admission for this patient, however given the reassuring workup, the patient is safe for outpatient management. Discussion with the Radiology: No Tests considered but not performed: Prescription medication considered but not given: 12 lead EKG interpretation: Time of 1ST Reevaluation: 08:40 Reevaluation 1ST: Unchanged Patient Education/Counseling: Diagnosis, Treatment Family Education/Counseling: No Family Present SEPSIS Sepsis Screen Date sepsis recognized/suspect: Sep 08, 2025 Time Sepsis recognized/suspect: 0717 Recent Procedure: No On Antibiotic Therapy: No Respiratory Rate >20: No Heart Rate >90: No Temp<36 C (96.8 F) or >38.3 C: No SBP <90 or MAP <65 mmHG: No New Acute Mental Status Change: No Is the patient on CPAP, BIPAP,: No Physician Orders * Supervisor [employer] Consult (09/08/25 ) Chest Xray 1 View (09/08/25 08:00) Vital Signs Date Time Temp Pulse Resp B/P (MAP) Pulse Ox O2 Delivery O2 Flow Rate FiO2 09/08/25 07:13 18 98 Room Air* 0 21 09/08/25 06:59 97.6 77 14 118/54 (75) 98 97.6 09/08/25 04:33 97.2 68 18 119/79 98 97.2 Critical Care Note Critical Care Time?: No Stability Stability form required: No Heart Score Heart Score: Heart Score Response (Comments) Value History N/A 0 EKG N/A 0 Age N/A 0 Risk Factors N/A 0 Troponin N/A 0 Total 0 I personally scribed for EDDIE VALDIVIA NP ([email or web address]) on 09/08/25 at 08:14. Electronically submitted by Lela Gray ([employer]). I personally scribed for EDDIE VALDIVIA NP ([email or web address]) on 09/08/25 at 08:31. Electronically submitted by Lela Gray ([employer]). EDDIE VALDIVIA NP Sep 08, 2025 08:14
== END 2025-09-08 09:31 | disposition left against medical advice (07) ==
LOC: ER 04:24
DX: T68.XXXA Hypothermia, initial encounter (principal); F11.10 Opioid abuse, uncomplicated; F17.200 Nicotine dependence, unspecified, uncomplicated; Z79.52 Long term (current) use of systemic steroids; X31.XXXA Exposure to excessive natural cold, initial encounter; Y93.89 Activity, other specified; Y92.89 Other specified places as the place of occurrence of the external cause; Y99.8 Other external cause status